=== PATIENT | male | born 1995 | race Caucasian/White ===

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

== ENCOUNTER → 2020-11-23 | Outpatient (CLI) | payer OTHER ==
[~2020-11-23] MED LIST: AUGMENTIN 875-1 EACH PO; ZOFRAN ODT4 MG PO
== END ==
LOC: RAD 12:58
DX: R59.0 Localized enlarged lymph nodes (principal); Z86.16 Personal history of COVID-19
CPT/HCPCS: 71046

== ENCOUNTER → 2021-05-06 | Outpatient (CLI) | payer OTHER | LOC: KOH-I 08:21 | DX: R59.0 Localized enlarged lymph nodes (principal); R14.0 Abdominal distension (gaseous); R63.0 Anorexia; K29.70 Gastritis, unspecified, without bleeding | CPT/HCPCS: 76536; 76700 ==

== ENCOUNTER → 2021-06-09 | Outpatient (CLI) | payer OTHER | LOC: CT 10:43 | DX: R59.1 Generalized enlarged lymph nodes (principal) | CPT/HCPCS: 70491; Q9967 ==

== ENCOUNTER → 2021-08-06 | Outpatient (CLI) | payer OTHER ==
[2021-08-06 09:50] LABS: HEMOGLOBIN 15.7 gm/dl (14.0-17.5); RED BLOOD COUNT 5.09 M/UL (4.20-5.50)
== END ==
LOC: US 07-27 10:00
PROVIDERS: Otolaryngology
DX: R59.1 Generalized enlarged lymph nodes (principal)
CPT/HCPCS: 36415; 85027; 85610; 85730

== ENCOUNTER → 2021-11-19 | Outpatient (CLI) | payer OTHER | LOC: KOH-I 12:48 | DX: R59.1 Generalized enlarged lymph nodes (principal) | CPT/HCPCS: 76536 ==

== ENCOUNTER 2022-01-09 18:07 | Emergency (ER) | payer OTHER ==
[2022-01-09 18:42] LABS: HEMOGLOBIN 15.6 gm/dl (14.0-17.5); RED BLOOD COUNT 5.06 M/UL (4.20-5.50); WHITE BLOOD COUNT 8.9 K/UL (4.5-11.0)
[2022-01-09 19:06] LABS: BUN/CREATININE RATIO 17 (0-10)
[2022-01-09] MEDS ORDERED: ONDANSETRON ODT4 MG PO (20:11)
== END 2022-01-09 20:25 | disposition home or self-care (01) ==
LOC: ER1 18:07
PROVIDERS: Nurse Practitioner
DX: R11.2 Nausea with vomiting, unspecified (principal); R19.7 Diarrhea, unspecified
CPT/HCPCS: 71045; 80053; 83690; 85025; 96361; 96374; 99284; J2405